=== PATIENT | male | born 1980 | race Caucasian/White ===

== ENCOUNTER 2025-03-19 12:37 | Inpatient (IN) | payer OTHER ==
[2025-03-19 12:54] VITALS: BMI 24.6
[2025-03-19] MEDS ORDERED: NICOTINE POLACRILEX 2 MG GUM BUC PRN (13:41)
[2025-03-19] MEDS ORDERED: LOPERAMIDE HCL 2 MG CAPSULE PO PRN (13:41)
[2025-03-19] MEDS ORDERED: BENZOCAINE/MENTHOL (CHLORASEPTIC ) LOZENGE MM PRN (13:41)
[2025-03-19] MEDS ORDERED: METHOCARBAMOL 500 MG TABLET PO PRN (13:41)
[2025-03-19] MEDS ORDERED: NALOXONE (NARCAN) HCL 4 MG/0.1 ML SPRAY NS PRN (13:41)
[2025-03-19] MEDS ORDERED: POLYETHYLENE GLYCOL (HEALTHYLAX) 3350 17 GM PACKET PO PRN (13:41)
[2025-03-19] MEDS ORDERED: BENZONATATE 200 MG CAPSULE PO PRN (13:41)
[2025-03-19] MEDS ORDERED: ONDANSETRON *ODT* 4 MG TABLET SL PRN (13:41)
[2025-03-19] MEDS ORDERED: MAG HYDROX/AL HYDROX/SIMETH 30 ML UNIT-DOSE CUP PO PRN (13:41)
[2025-03-19] MEDS ORDERED: BISMUTH SUBSALICYLATE 524 MG/30 ML PO PRN (13:41)
[2025-03-19] MEDS ORDERED: ACETAMINOPHEN 325 MG TABLET (FP) PO PRN (13:41)
[2025-03-19] MEDS ORDERED: MAGNESIUM HYDROX 2400MG/30ML ORAL SUSPENSION 30 ML CUP PO PRN (13:41)
[2025-03-19] MEDS ORDERED: IBUPROFEN 600 MG TABLET (FP) PO PRN (13:41)
[2025-03-19] MEDS ORDERED: IBUPROFEN 400 MG TABLET (FP) PO PRN (13:41)
[2025-03-19] MEDS ORDERED: guaiFENesin 600 MG TABLET.ER (FP) PO PRN (13:41)
[2025-03-19] MEDS ORDERED: DICYCLOMINE HCL 10 MG CAPSULE PO PRN (13:41)
[2025-03-19] MEDS ORDERED: hydrOXYzine PAMOATE 25 MG CAPSULE (FP) PO ONE (14:26)
[2025-03-19] MEDS: hydrOXYzine PAMOATE 25 MG CAPSULE (FP) PO PRN (14:28)
[2025-03-19] MEDS: levETIRAcetam 500 MG TABLET (FP) PO SCH (22:54)
[2025-03-19] MEDS: THIAMINE 100 MG TABLET PO SCH (22:54)
[2025-03-19] MEDS: MELATONIN 5 MG TABLETS PO SCH (22:55)
[2025-03-20 10:01] LABS: MCHC 33.7 g/dl (32.3-36.5); MEAN CELL VOLUME 99.5 fl (79.0-92.2); MEAN PLT VOLUME 9.6 fl (9.4-12.4); RDW 14.3 % (12.1-15.9)
[2025-03-20 10:15] LABS: GLUCOSE,RANDOM 112.0 mg/dL (74-106); TOT PROT 7.5 g/dl (6.4-8.2)
[2025-03-20 10:17] LABS: CO2 26.0 mmol/L (21-32)
[2025-03-20 10:18] LABS: ALK PHOS 95.0 U/L (40-150)
[2025-03-20 10:21] LABS: CREATININE 0.51 mg/dL (0.55-1.3); SGOT/AST 81.0 U/L (5-34); SGPT/ALT 42.0 U/L (0-55)
[2025-03-20] MEDS: PRENATAL VITAMINS W/ FOLIC ACID TABLET (FP) PO SCH (11:00)
[2025-03-20] MEDS: NICOTINE 14 MG/24 HOURS TOPICAL PATCH TD SCH (11:00)
[2025-03-20] MEDS: ACAMPROSATE CALCIUM 333 MG TABLET.DR PO SCH (13:32)
[2025-03-21] MEDS: LACTULOSE 20 GM/30 ML UDC (FOR ORAL USE ONLY) PO SCH (15:41)
[2025-03-22] MEDS: LORazepam 2 MG/ML SDV VIAL IM ONE ×2 (01:11→11:09)
[2025-03-22 14:22] VITALS: BP 121/97; PULSE 118; RESP 18; TEMP 97.9
== END 2025-03-22 23:55 | disposition short-term general hospital (02) | DRG 775 ==
LOC: YASAS 12:37 → Y6N 14:05
PROVIDERS: ADMIT Allergy & Immunology; ATTEND Student in an Organized Health Care Education/Training Program
PROC: HZ2ZZZZ Detoxification Services for Substance Abuse Treatment (ICD-10-PCS; principal; 2025-03-19)
DX: F10.230 Alcohol dependence with withdrawal, uncomplicated (principal); F17.210 Nicotine dependence, cigarettes, uncomplicated; F10.282 Alcohol dependence with alcohol-induced sleep disorder; F41.9 Anxiety disorder, unspecified; F32.A Depression, unspecified; Z59.00 Homelessness unspecified
CPT/HCPCS: 36415; 80053; 80307; 82140; 85027; 86780; 93005; 93010

== ENCOUNTER 2025-03-22 15:08 | Inpatient (IN) | payer OTHER ==
[2025-03-22] MEDS ORDERED: diazePAM CARPU-JECT 10 MG/2 ML DISP.SYRIN ONE ×3 (15:27→19:35)
[2025-03-22 15:29] VITALS: BMI 27.4
[2025-03-22] MEDS: diazePAM CARPU-JECT 10 MG/2 ML DISP.SYRIN IVPUSH ONE ×3 (15:32→19:41)
[2025-03-22 15:47] LABS: ABSOLUTE IMMATURE GRANULOCYTES 0.02 x10^3/uL (0.0-0.031); BASOPHILS # 0.04 x10^3/uL (0.01-0.08); EOSINOPHIL % 1.6 % (0.8-7.0); EOSINOPHILS # 0.09 x10^3/uL (0.04-0.54); MCHC 33.9 g/dl (32.3-36.5); MEAN CELL VOLUME 101.2 fl (79.0-92.2); MEAN PLT VOLUME 8.9 fl (9.4-12.4); MONOCYTE # 0.54 x10^3/uL (0.30-0.82); MONOCYTE % 9.8 % (5.3-12.2); RDW 14.7 % (12.1-15.9)
[2025-03-22] MEDS ORDERED: THIAMINE HCL 200 MG/2 ML VIAL ONE ×3 (15:47→18:26)
[2025-03-22] MEDS: THIAMINE HCL 200 MG/2 ML VIAL IVPB ONE (15:55)
[2025-03-22 16:02] LABS: GLUCOSE,RANDOM 92 mg/dL (74-106)
[2025-03-22 16:03] LABS: TOT PROT 8.7 g/dl (6.4-8.2)
[2025-03-22 16:04] LABS: CO2 27 mmol/L (21-32)
[2025-03-22 16:05] LABS: ALK PHOS 86 U/L (40-150)
[2025-03-22 16:08] LABS: CREATININE 0.58 mg/dL (0.55-1.3); SGOT/AST 212 U/L (5-34); SGPT/ALT 121 U/L (0-55)
[2025-03-22 16:29] LABS: HIV INTERPRETATION NEGATIVE (NEGATIVE)
[2025-03-22 16:30] LABS: HCV DIAGNOSTIC IN-HOUSE W/RFLX NON-REACTIVE (NONREACTIVE)
[2025-03-22] MEDS: LACTATED RINGERS SOLUTION 1,000 ML IV STA (18:00)
[2025-03-22] MEDS ORDERED: LACTULOSE 20 GM/30 ML UDC (FOR ORAL USE ONLY) ONE ×2 (18:19→23:28)
[2025-03-22] MEDS: THIAMINE HCL 200 MG/2 ML VIAL IVPB SCH (18:42)
[2025-03-22] MEDS: LACTULOSE 20 GM/30 ML UDC (FOR ORAL USE ONLY) PO SCH (18:43)
[2025-03-22] MEDS ORDERED: MAGNESIUM 1GM/D5W - 1 GM/100 ML IVPB IVPB ONE (19:35)
[2025-03-22] MEDS: MAGNESIUM SULF 50% (8.12 MEQ/2 ML-1 GM VIAL) IVPB ONE (19:41)
[2025-03-22] MEDS: FOLIC ACID 5 MG/1 ML SQ ONE (19:41)
[2025-03-22] MEDS ORDERED: LORazepam 2 MG/ML SDV VIAL ONE (21:11)
[2025-03-22] MEDS: LORazepam 2 MG/ML SDV VIAL IVPUSH PRN (21:18)
[2025-03-22] MEDS ORDERED: levETIRAcetam 500 MG/5 ML INJECTION VIAL IVPB ONE (22:56)
[2025-03-22] MEDS: levETIRAcetam 500 MG/5 ML INJECTION VIAL IVPB SCH (22:59)
[2025-03-23] MEDS ORDERED: THIAMINE HCL 200 MG/2 ML VIAL ONE ×2 (01:38→10:46)
[2025-03-23 06:46] LABS: ABSOLUTE IMMATURE GRANULOCYTES 0.01 x10^3/uL (0.0-0.031); BASOPHILS # 0.04 x10^3/uL (0.01-0.08); EOSINOPHIL % 2.7 % (0.8-7.0); EOSINOPHILS # 0.11 x10^3/uL (0.04-0.54); MCHC 33.4 g/dl (32.3-36.5); MEAN CELL VOLUME 102.4 fl (79.0-92.2); MEAN PLT VOLUME 9.5 fl (9.4-12.4); MONOCYTE # 0.52 x10^3/uL (0.30-0.82); MONOCYTE % 12.9 % (5.3-12.2); RDW 15.0 % (12.1-15.9)
[2025-03-23 07:05] LABS: INR 1.05 (0.83-1.09); PROTHROMBIN TIME (PATIENT) 11.4 SEC (9.7-13.0)
[2025-03-23 07:07] LABS: ACTIVATED PTT 30.5 SECONDS (25.2-36.5)
[2025-03-23 07:20] LABS: GLUCOSE,RANDOM 84.0 mg/dL (74-106); TOT PROT 7.4 g/dl (6.4-8.2)
[2025-03-23 07:21] LABS: CO2 24.0 mmol/L (21-32)
[2025-03-23 07:23] LABS: ALK PHOS 73.0 U/L (40-150)
[2025-03-23 07:26] LABS: CREATININE 0.6 mg/dL (0.55-1.3); SGOT/AST 210.0 U/L (5-34); SGPT/ALT 132.0 U/L (0-55)
[2025-03-23] MEDS ORDERED: FOLIC ACID 1 MG TABLET (FP) ONE (10:18)
[2025-03-23] MEDS ORDERED: levETIRAcetam 500 MG/5 ML INJECTION VIAL IVPB ONE (10:18)
[2025-03-23] MEDS ORDERED: LACTULOSE 20 GM/30 ML UDC (FOR ORAL USE ONLY) ONE (10:18)
[2025-03-23] MEDS ORDERED: ENOXAPARIN NA (PORCINE) 40 MG/0.4 ML DISP.SYRIN SQ ONE (10:19)
[2025-03-23] MEDS ORDERED: MAGNESIUM 1GM/D5W - 1 GM/100 ML IVPB IVPB ONE (10:19)
[2025-03-23] MEDS: FOLIC ACID 1 MG TABLET (FP) PO SCH (10:25)
[2025-03-23] MEDS: SODIUM CHLORIDE 0.9%/KCL 20 MEQ/1,000 ML INFUS.BAG IV SCH (10:25)
[2025-03-23] MEDS: MAGNESIUM 1GM/D5W - 1 GM/100 ML IVPB IVPB ONE (10:27)
[2025-03-23] MEDS: ENOXAPARIN NA (PORCINE) 40 MG/0.4 ML DISP.SYRIN SQ SCH (10:27)
[2025-03-23 15:04] LABS: HEPATITIS B SURFACE AG MATERN NON-REACTIVE (NONREACTIVE)
[2025-03-24 06:54] LABS: URINE APPEARANCE CLEAR; URINE BILIRUBIN NEGATIVE (NEGATIVE); URINE COLOR YELLOW; URINE GLUCOSE (UA) NEGATIVE (NEGATIVE); URINE KETONE NEGATIVE (NEGATIVE); URINE LEUK ESTERASE NEGATIVE (NEGATIVE); URINE NITRITE NEGATIVE (NEGATIVE); URINE PROTEIN NEGATIVE (NEGATIVE); URINE UROBILINOGEN 1.0 mg/dL (0.2-1.0)
[2025-03-24 07:48] LABS: MCHC 33.7 g/dl (32.3-36.5); MEAN CELL VOLUME 101.1 fl (79.0-92.2); MEAN PLT VOLUME 9.2 fl (9.4-12.4); RDW 14.3 % (12.1-15.9)
[2025-03-24 08:14] LABS: GLUCOSE,RANDOM 86.0 mg/dL (74-106)
[2025-03-24 08:15] LABS: TOT PROT 7.1 g/dl (6.4-8.2)
[2025-03-24 08:16] LABS: CO2 23.0 mmol/L (21-32)
[2025-03-24 08:17] LABS: ALK PHOS 72.0 U/L (40-150)
[2025-03-24 08:20] LABS: SGOT/AST 149.0 U/L (5-34); SGPT/ALT 130.0 U/L (0-55)
[2025-03-24 08:27] LABS: CREATININE 0.66 mg/dL (0.55-1.3)
[2025-03-24] MEDS: LACTULOSE 20 GM/30 ML UDC (FOR ORAL USE ONLY) PO SCH (11:30)
[2025-03-25 09:22] LABS: BASOPHILS # 0.05 x10^3/uL (0.01-0.08); MEAN PLT VOLUME 8.9 fl (9.4-12.4); RDW 14.3 % (12.1-15.9)
[2025-03-25 09:23] LABS: ABSOLUTE IMMATURE GRANULOCYTES 0.02 x10^3/uL (0.0-0.031); EOSINOPHIL % 1.9 % (0.8-7.0); EOSINOPHILS # 0.09 x10^3/uL (0.04-0.54); MCHC 33.1 g/dl (32.3-36.5); MEAN CELL VOLUME 101.8 fl (79.0-92.2); MONOCYTE # 0.82 x10^3/uL (0.30-0.82); MONOCYTE % 17.1 % (5.3-12.2)
[2025-03-25 09:55] LABS: GLUCOSE,RANDOM 114.0 mg/dL (74-106)
[2025-03-25 09:56] LABS: CO2 22.0 mmol/L (21-32); TOT PROT 7.9 g/dl (6.4-8.2)
[2025-03-25 09:58] LABS: ALK PHOS 70.0 U/L (40-150)
[2025-03-25 10:01] LABS: CREATININE 0.7 mg/dL (0.55-1.3); SGOT/AST 146.0 U/L (5-34); SGPT/ALT 150.0 U/L (0-55)
[2025-03-25 10:01] LABS: GLUCOSE,RANDOM 84.0 mg/dL (74-106)
[2025-03-25 10:02] LABS: TOT PROT 7.6 g/dl (6.4-8.2)
[2025-03-25 10:03] LABS: CO2 20.0 mmol/L (21-32)
[2025-03-25 10:04] LABS: ALK PHOS 68.0 U/L (40-150)
[2025-03-25 10:07] LABS: CREATININE 0.77 mg/dL (0.55-1.3); SGOT/AST 130.0 U/L (5-34); SGPT/ALT 139.0 U/L (0-55)
[2025-03-25 13:02] VITALS: BP 112/87; PULSE 99; RESP 16; TEMP 98.1
== END 2025-03-25 17:50 | disposition home or self-care (01) | DRG 775 ==
LOC: JER 15:08 → JERBED 18:03 → J4S 03-23 12:41
PROVIDERS: ADMIT Student in an Organized Health Care Education/Training Program; ATTEND Internal Medicine
DX: F10.230 Alcohol dependence with withdrawal, uncomplicated (principal); R74.01 Elevation of levels of liver transaminase levels; D61.818 Other pancytopenia; R94.5 Abnormal results of liver function studies; Z59.00 Homelessness unspecified
CPT/HCPCS: 36415; 70450-TC; 80053; 80307; 81003; 82607; 82746; 83735; 84100; 84436; 84443; 85025; 85610; 85730; 86704; 86803; 87040; 87340; 87389; 87517; 93005; 93010; 99285-25